=== PATIENT | male | born 1960 | race African-American/Black ===

== ENCOUNTER 2019-10-09 17:09 | Inpatient (IN) | payer OTHER ==
[~2019-10-09] VITALS: Ht 188 cm; Wt 59.9 kg
[2019-10-09 17:11] VITALS: BP 105/70
[2019-10-09] MEDS ORDERED: LORATIDINE 10 M10 M1 PO (17:41)
[2019-10-09 17:48] LABS: ABSOLUTE NEUTROPHILS 16.5 thou/uL (1.4-8.2); BASOPHILS 0.1 % (0.0-2.0); EOSINOPHILS 0.2 % (0.0-3.0); HEMATOCRIT 29.8 % (42.0-52.0); HEMOGLOBIN 10.1 gm/dL (14.0-18.0); LYMPHOCYTES 6.2 % (24.0-44.0); MCH 29.2 pg (26.0-34.0); MCHC 33.7 g/dL (28.0-37.0); MCV 86.7 fL (80.0-100.0); MONOCYTES 6.5 % (1.0-8.0); PLATELET COUNT 376 thou/uL (150-400); RBC 3.44 mil/uL (4.50-6.00); RDW 15.5 % (10.5-14.5)
[2019-10-09 17:51] LABS: ANION GAP 12 mmol/L (7-16); BUN 55 mg/dL (7-18); CALCIUM 7.4 mg/dL (8.5-10.1); CHLORIDE 103 mmol/L (98-107); CO2 23 mmol/L (21-32); CREATININE 4.6 mg/dL (0.7-1.3); GLUCOSE 118 mg/dL (74-106); POTASSIUM 3.6 mmol/L (3.5-5.1); SODIUM 138 mmol/L (136-145)
[2019-10-09 17:55] LABS: INR 1.5; PROTIME 15.5 Seconds (9.3-11.4)
[2019-10-09 18:01] LABS: ALBUMIN 1.4 g/dL (3.4-5.0); SGOT 72 U/L (15-37); SGPT 17 U/L (30-65); TOTAL BILIRUBIN 4.4 mg/dL (0.2-1.0); TROPONIN-I <0.06 ng/mL (<0.06)
--- NOTE | 2019-10-09 18:01 | NUR ---
FROM PHONE CALL WITH PT - [facility] - PT HAS NEVER BEEN HERE TO [facility], HE HAS NEVER BEEN DX WITH LIVER FAILURE BUT WAS DX WITH "TRAVELERS" HEPATITIS, PT HAS BEEN HAVING DARK BROWN VOMIT 1-2WKS, HIS STOOL HAS BEEN DARKER AND STICKY, PT'S LASIX WAS PRESCRIBED BY DR. LAMBERT AT [facility] RX FOR 5 DAYS FOR THE EDEMA IN HIS LEGS, PTS URINE HAS BEEN "VERY DARK" RECENTLY, BUT SHE IS UNSURE HOW LONG HIS STOMACH HAS BEEN SO DISTENDED #[phone]
[2019-10-09 18:29] LABS: URINE BILIRUBIN 3+ (Negative); URINE BLOOD NEGATIVE (Negative); URINE CLARITY CLEAR; URINE COLOR YELLOW; URINE GLUCOSE-RANDOM* TRACE (Negative); URINE KETONES TRACE (Negative); URINE LEUKOCYTES-REFLEX NEGATIVE (Negative); URINE NITRITE-REFLEX NEGATIVE (Negative); URINE PROTEIN (DIPSTICK) 1+ (Negative); URINE SPECIFIC GRAVITY >= 1.030 (1.005-1.035)
[2019-10-09 18:32] LABS: ICTOTEST (BILI CONFIRMATORY) Positive (Negative)
[2019-10-09 18:38] LABS: FINE GRANULAR CASTS 0-3 Few /LPF (None Seen); HYALINE CASTS >10 Many /LPF (None Seen)
[2019-10-09 18:39] LABS: BACTERIA-REFLEX None Seen /HPF (None Seen); URINE RBC 0-2 Rare /HPF (0-2); URINE WBC-REFLEX 0-5 Rare /HPF (0-5)
[2019-10-09 18:40] LABS: AMORPHOUS URATES Few /LPF (None Seen); SQUAMOUS 0-3 Few /LPF (0-3)
--- NOTE | 2019-10-09 19:41 | NUR ---
ERP NOTIFIED OF PT BP, ERP ORDERED HALF LITER OF FLUID AND NG TUBE
[2019-10-09 21:48] VITALS: BP 97/63
[2019-10-09 22:20] VITALS: BP 104/65
[2019-10-09 22:30] VITALS: BP 97/64
[2019-10-09 23:00] VITALS: BP 93/66
[2019-10-09 23:15] VITALS: BP 97/61
[2019-10-10] VITALS (31 sets, daily range): BP systolic 75–109; BP diastolic 44–73
[2019-10-10 05:41] LABS: HEMATOCRIT 30.3 % (42.0-52.0); HEMOGLOBIN 9.8 gm/dL (14.0-18.0); MCH 28.8 pg (26.0-34.0); MCHC 32.5 g/dL (28.0-37.0); MCV 88.7 fL (80.0-100.0); RBC 3.41 mil/uL (4.50-6.00); RDW 15.9 % (10.5-14.5)
[2019-10-10 05:58] LABS: CHOLESTEROL 104 mg/dL (<200); HDL CHOLESTEROL 6 mg/dL (>40); LDL CHOLESTEROL 67 mg/dL (<100); TC:HDL 17.3 Ratio (Not establshd); TRIGLYCERIDE 156 mg/dL (<150); VLDL 31 mg/dL (<40)
[2019-10-10 06:02] LABS: SERUM ASSESSMENT Clear
[2019-10-10 06:21] LABS: ALBUMIN 1.2 g/dL (3.4-5.0); CALCIUM 6.7 mg/dL (8.5-10.1); CREATININE 4.6 mg/dL (0.7-1.3); POTASSIUM 3.5 mmol/L (3.5-5.1); TOTAL PROTEIN 6.1 g/dL (6.4-8.2)
[2019-10-10 06:24] LABS: TOTAL BILIRUBIN 4.2 mg/dL (0.2-1.0)
--- NOTE | 2019-10-10 08:11 | NUR ---
RECEIVED PT FROM ER. PT ALERT. ST ON MONITOR. MAP >65. MAINT IVF INFUING. UO REMAINS LOW DESPITE INCREASE IN IVF RATE PER FIELD PROPERTY LOSS SPECIALIST. DR FLORES HERE THIS AM TO SEE PT. NO RESP DISTRESS. MAINTAIN 02SAT 97 ON 2LNC. NO COUGH OR FEVER. COVID PENDING. SEE [facility] FOR ASSESSMENT. CONT PLAN OF CARE.
--- NOTE | 2019-10-10 09:04 | EKG ---
[facility] [place] [address] ELECTROCARDIOGRAM REPORT Name: KAYLI GALLEGO Room #: 247-P ADM IN M.R.#: [id number] Admission: 10/09/19 Attend Phys: Saji Baptiste MD Discharge: Date of : 60 Report #: [id number] THIS REPORT FOR: cc: FAM - Family physician unknown FAM - Family physician unknown Brayan Seaman MD [facility] ~ THIS REPORT FOR: //name// [facility] ED Test Date: 2019-10-09 Test Time: 17:33:08 Pat Name: KAYLI GALLEGO Department: Room: 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1960 Requested By: Shandra Amaya Order Number: [id number] MD: Brayan Seaman Measurements Intervals [place] Rate: 106 P: 49 WI: 105 QRS: 34 QRSD: 110 T: 136 QT: 347 QTc: 461 Interpretive Statements Sinus tachycardia Nonspecific ST and T wave abnormality No previous ECG available for comparison Electronically Signed On 10-10-2019 9:02:42 CDT by Brayan Seaman [email or web address] <ELECTRONICALLY SIGNED> By: Brayan Seaman MD, [facility] 10/10/19901 1733 173 Brayan Seaman MD, [facility] /EPI
--- NOTE | 2019-10-10 12:08 | NUR ---
chart review. tried to reach pt bedside nurse to see if he is able to visit via phone call. discussed during lost consult ordered and will cont following as needed for dc needs.
--- NOTE | 2019-10-10 18:04 | NUR ---
PT REMAINS VERY WEAK. PT DENIES ANY TROUBLE BREATHING DURING THIS SHIFT. PT IS ON 4L NC. U.O IS ALMOST ZERO. PRIOR DAY SHIFT RN (TODAY) DRAINED 25MLS OF URINE FOR URINE LAB TEST. PT HAS NOT PRODUCED ENOUGHT TO BE MEASURED AFTER INITIAL AM [address] GRIDER AWARE OF VERY LOW U.O. PT REMAINS AFEBRILE. ABDOMEN REMAINS VERY DISTENDED. NO BM THIS SHIFT. GI ROUNDED AND PLANS TO DO EGD IN AM. NO N/V, SCANT AMOUNT OF DRAINAGE FROM NG TUBE.
--- NOTE | 2019-10-10 22:22 | NUR ---
PT SLEEPING IN BED WITH HAT AND COVERS OVER HIS EYES. PT EASILY AROUSED WITH VERBAL INTERACTION. IVF INTACT. NG TO LIS. ORO TO DD, BROWN URINE, RENAL DR AWARE OF SCANT URINE OUTPUT. ABD DISTENDED AND FIRM. O2 PER NC. LOW SBP CONTINUE. PT HAS SMALL LIQUID STOOL BROWN, INCONTINENT. PT ORIENTED TO SELF AND SITUATION, SPEECH AT TIMES MUMBLED.
--- NOTE | 2019-10-10 23:12 | NUR ---
PT ASKS FOR CELL PHONE TO BE PLACED IN HAND AND TURNED ON AND THEN PT RETURNS TO SLEEP.
--- NOTE | 2019-10-10 23:36 | NUR ---
PTS CALLED REPORTING THAT PT TOLD HIS DAUGHTER THAT HE WAS IN SEVERE PAIN. NURSE WENT TO TALK WITH PT, HE HAD TO BE AWAKENED AND HE STATED HIS ABD HURTS WHERE THEY STUCK HIM. PT REPOSITIONED. TALKED WITH OF HOW LOW HIS BP IS AND HOW PAIN MEDICATIONS DECREASE BLOOD PRESSURE BUT THAT WHEN A PT STARTS COMFORT CARES THAT IS NOT A FOCUS.
[2019-10-11] VITALS (14 sets, daily range): BP systolic 73–98; BP diastolic 40–61
--- NOTE | 2019-10-11 00:11 | NUR ---
PT AWAKENED AND ASKED RE PAIN, PT REPORTS DISCOMFORT AT SITE OF WHERE HE GOT STOCK. PT REPOSITIONED AND PROVIDED WARM BLANKET. PT STATED HE IS COMFORTABLE AND WANTS TO RETURN TO SLEEP. CHARGE NURSE UPDATED RE WIFES PHONE CALL AND PAIN CONCERNS AND PTS CURRENT STATUS.
--- NOTE | 2019-10-11 01:32 | NUR ---
PT AWAKENED AND REPORTED NAUSEA AND PAIN, PROVIDED PRNS. PT REPOSITIONED AND HE REPORTED HE WAS SLEEPY.
[2019-10-11 04:07] LABS: GLYCOHEMOGLOBIN (HGB A1C) 4.5 % (4.8-5.6)
[2019-10-11 05:14] LABS: HEMATOCRIT 28.3 % (42.0-52.0); HEMOGLOBIN 9.2 gm/dL (14.0-18.0); MCH 28.7 pg (26.0-34.0); MCHC 32.5 g/dL (28.0-37.0); MCV 88.4 fL (80.0-100.0); RBC 3.2 mil/uL (4.50-6.00); RDW 15.6 % (10.5-14.5); WBC 11.5 thou/uL (4.0-11.0)
[2019-10-11 05:22] LABS: ALBUMIN 3.1 g/dL (3.4-5.0); CALCIUM 7.1 mg/dL (8.5-10.1); CREATININE 4.9 mg/dL (0.7-1.3); MAGNESIUM 1.7 mg/dL (1.8-2.4); PHOSPHORUS 5.9 mg/dL (2.5-4.9); POTASSIUM 3.6 mmol/L (3.5-5.1); TOTAL PROTEIN 6.6 g/dL (6.4-8.2)
--- NOTE | 2019-10-11 05:28 | NUR ---
PER PHARMACY SHORTAGE ON ALBUMIN.
[2019-10-11 05:44] LABS: TOTAL BILIRUBIN 4.2 mg/dL (0.2-1.0)
--- NOTE | 2019-10-11 10:00 | NUR ---
cm spoke with bedside nurse who going to get pt a phone to use, so cm can visit with him. . a & o x 3 self, , name, year, and not location thought he was at [facility]. he soft spoken he gave cm phone number of [phone] but when cm called it was malachi voice message. cm did not leave any message just hung up the phone. cm spoke with pt via phone call. intro to cm and dcp. he reported " live with 4 steps into house, 7 steps inside house. not on any medication before this. independent. still drives. had rehab for his back. doesnt work and is not retried. no insurance or drNasir declines and resources ie safe net packet or support. " drug and ethol was offered before but did not do it and it wont be necessary this time"/margo. will cont following as needed for dc needs.
[2019-10-11 17:07] LABS: HAV IgM AB (ANTI-HAV IgM) Negative (Negative); HEPATITIS B SURFACE AG Negative (Negative); HEPATITIS C VIRUS AB 0.2 (0.0-0.9)
--- NOTE | 2019-10-11 18:29 | NUR ---
ASSUMED CARE @ 0700 10/11/19, PT ALERT AND ORIENTED X 2-3, PT ABLE TO FOLLOW SIMPLE COMMANDS BUT VERY WEAK. DR WELSH @ BEDSIDE @ AU[place]OX 0930, NO NEW ORDERS RECIEVED, RN MADE AWARE THAT WOULD BE COMING IN THE AFTERNOON TO FOR A MEETING ABOUT CODE STATUS. ARRIVES @ 1130, DR WELSH PAGED AND HE ARRIVES AT BEDSIDE AND EXPLAINS IN DETAIL PROGNOSIS AND PLAN OF CARE. NO DECISION WAS MADE TODAY. DR COLMENARES @ BEDSIDE 1145, NO NEW ORDERS RECIEVED. SBP IN 80'S ALL DAY, MAP GREATER THAN 60, DR WELSH AWARE. DR GARCIA TO BEDSIDE @ APPROX 1300, EGD IS PUT ON HOLD FOR TODAY. PT OLIGURIC, DR FLORES AWARE. PT COMPLAINS ABOUT PAIN DUE TO LOW BP, RN DIDNT FEEL COMFORTABLE GIVING FENTANYL , DR WELSH PAGED, NEW ORDERS RECIEVED.
[2019-10-12] VITALS (20 sets, daily range): BP systolic 79–100; BP diastolic 50–63
[2019-10-12 05:33] LABS: HEMATOCRIT 27.8 % (42.0-52.0); HEMOGLOBIN 8.8 gm/dL (14.0-18.0); MCH 28.6 pg (26.0-34.0); MCHC 31.6 g/dL (28.0-37.0); MCV 90.4 fL (80.0-100.0); RBC 3.07 mil/uL (4.50-6.00); RDW 16.1 % (10.5-14.5); WBC 11.9 thou/uL (4.0-11.0)
[2019-10-12 05:58] LABS: ALBUMIN 3.5 g/dL (3.4-5.0); CALCIUM 7.2 mg/dL (8.5-10.1); CREATININE 5.5 mg/dL (0.7-1.3); PHOSPHORUS 5.9 mg/dL (2.5-4.9); POTASSIUM 3.3 mmol/L (3.5-5.1)
--- NOTE | 2019-10-12 06:45 | NUR ---
PT FOLLOWS COMMANDS. PT ORIENTED x3. PT URINE OUTPUT 10 ML THROUGHOUT THE SHIFT - DR. HERNANDEZ AWARE. NO BLOODY EMESIS OR STOOL. PT EXPRESSED HIS WISHES TO BE DNR AND GO HOME ON HOSPICE. WISHES WERE CONVEYED INFRONT OF DR. HERNANDEZ. PT CALLED MULTIPLE TIMES THROUGHOUT THE NIGHT. PT UPDATED ON PT SITUATION AND EXPLAINED THE POOR PROGNOSIS OF LIVER FAILURE. CHART CHECK. PT NOT PROGRESSING TOWARDS GOAL.CONTINUE TO MONITOR.
[2019-10-12] MEDS ORDERED: MIDODRINE HCL 55 M1 PO (08:17)
[2019-10-12] MEDS ORDERED: KRISTALOSE20 GM PO (08:18)
[2019-10-12] MEDS ORDERED: DURAGESIC1 EAC4 TRANSDERM (08:18)
[2019-10-12] MEDS ORDERED: ZOFRAN 4 MG ORAL4 MG PO (08:22)
--- NOTE | 2019-10-12 09:18 | HC ---
[facility] [place] [address] CONSULTATION Name: KAYLI GALLEGO Room #: [facility] ADM IN M.R.#: [id number] Admission: 10/09/19 Attend Phys: Dee Dee Ramos Discharge: Date of : 60 Report #: [id number] THIS REPORT FOR: cc: SANJANA - Family physician unknown [facility] - Family physician unknown Tesfaye Villarreal MD ~ CC: SANJANA Ramos DATE OF SERVICE: 10/10/2019 REASON FOR PRESENTATION: Abdominal distension, weakness. REASON FOR CONSULTATION: Elevated creatinine. HISTORY OF PRESENT ILLNESS: Very limited to obtain from the patient given his overall mental status and condition. He is a 58-year-old with history of end-stage liver disease with ascites due to alcohol abuse. He presented with abdominal distension and generalized weakness. Apparently, the patient had some swelling and abdominal distension; was seen by his primary care physician last week, who initiated him on Lasix. This has resulted in improvement of his edema; however, the patient continued to have major issues with abdominal distension. informed the ER staff that the patient has been a heavy drinker for years. Last drink was 3-5 weeks ago. He carries a diagnosis of hypertension with noncompliance with his medications. When the patient presented to the Emergency Room yesterday, he was found to be in acute kidney injury with an elevated creatinine; however, I am not able to ascertain his previous creatinine values. Other details of the history are unavailable given the patient's current mentation. PAST MEDICAL HISTORY: 1. Alcohol abuse. 2. Hypertension. 3. Depression. 4. End-stage liver disease. ALLERGIES: IBUPROFEN. REVIEW OF SYSTEMS: Unobtainable, the patient is extremely lethargic and not able to provide me with the details. SOCIAL HISTORY: Past history of alcohol abuse, specifically vodka, quit a few weeks ago. He is a former smoker. FAMILY HISTORY: His mom has heart disease per the history obtained from the patient on arrival to the ER. [facility] [address] [place] [address] CONSULTATION Name: KAYLI GALLEGO Room #: [address] [place] [address] IN .R.#: [id number] Admission: 10/09/19 Attend Phys: Dee Dee Ramos Discharge: Date of : 60 Report #: [id number] MEDICATIONS: Loratadine. PHYSICAL EXAMINATION: GENERAL: He is extremely cachectic. He is lethargic. He is confused. VITAL SIGNS: Blood pressure is marginal at 80 or 90/64. HEAD AND NECK: Extreme wasting of his temporal muscles. CHEST: No crackles. CARDIOVASCULAR: No rub. ABDOMEN: Extreme tense ascites. I could not appreciate organomegaly. EXTREMITIES: Lower extremities with +3 edema. LABORATORY VALUES: White blood cell count 15,000, down from 19,000. Sodium is 142, potassium is 3.5, chloride is 108, carbon dioxide is 18, BUN is 54, creatinine is 4.6. Bilirubin is 4.2. AST is 68, ALT is 12. Chest, abdomen and pelvis CT was consistent with pleural effusion and ascites. ASSESSMENT AND PLAN: 1. Elevated creatinine, acute kidney injury with unknown baseline. 2. End-stage liver disease due to alcohol abuse. 3. I do not have the patient's creatinine value from the past. His presentation is highly suggestive of hepatorenal syndrome. He received some IV fluid resuscitation. I will start the appropriate workup for hepatorenal syndrome. I will initiate the patient on albumin, midodrine, octreotide. This seems to be a very bad prognosis situation and things will need to be addressed with the patient and his family accordingly. <ELECTRONICALLY SIGNED> By: Tesfaye Villarreal MD 10/12/19 0918 0857 0950 Tesfaye Villarreal MD /nt
--- NOTE | 2019-10-12 09:55 | NUR ---
PER CHART AND RN REPORT, Pt ON HOSPICE CARE. THEREFORE, O.T. IN ACUTE CARE SETTING NOT APPROPRIATE.
--- NOTE | 2019-10-12 10:00 | NUR ---
DR WELSH IN TO SEE PATIENT, PATIENT EXPRESS DESIRE TO MOVE TO HOSPICE CARE. CASE MANAGEMENT NOTIFIED. CALLED IN AND UPDATED TO THE PATIENT'S DESIRES AND UPDATED TO THE POC. EDUCATED ON PLANS OF HOSPICE, AND APPEARS TO BE ACCEPTING OF HER 'S DECISION AT THIS TIME. CONCERNED WITH HOW MUCH FAMILY CONTACT THERE CAN BE AT THIS TIME WITH LIMITED VISITING.
--- NOTE | 2019-10-12 16:10 | NUR ---
BASIHR reviewed chart and spoke with nursing and attending physician. Pt is a DNR and has decided to initiate hospice services. BASHIR spoke with pt via phone to discuss discharge plan. Pt states he is aware of hospice and would like to go home with hospice. SW also discussed a hospice facility. Pt is agreeable with hospice evaluation. Options discussed. No preference voiced. BASHIR faxed clinical info and order to [facility] and contacted liaison. roller engraver, Veronica, came to evaluate pt. Pt does not meet criteria for the hospice house at this time. BASHIR spoke with pt's , Jose Antonio, via phone to provide update and discuss discharge plan. BASHIR explained that if pt does not meet admission criteria for the hospice house, hospice can be arranged at home. Pt's states that she will try to see if other family members/friends would be able to provide care in the home. Preference would be for pt to go to the hospice house. BASHIR discussed with Veronica at [facility], who states she will come to [facility] tomorrow morning at 1000. BASHIR notified clubhouse attendant of Veronica coming tomorrow. BASHIR updated pt's nurse and attending physician. Pt to move out of ICU when a bed is available. BASHIR is following to assist as needed with discharge planning.
--- NOTE | 2019-10-12 17:16 | NUR ---
HOSPICE NURSE IN TO EVALUATED PATIENT FOR THE HOSPICE HOUSE AT 1330. PATIENT IS ALERT, AND COOPERATIVE, PAIN CONTROLLED WITH REPOSITIONING AND WARM BLANKETS. CALLED IN AT 1345 AND INFORMED THAT PATIENT WOULD BE REEVALUATED TOMORROW FOR HOSPICE HOUSE HE WAS EASILY CARED FOR WITH LIMITED MEDS. NG AND ORO OUT, TOLERATING PO FLUIDS WITHOUT NAUSEA OR EMESIS. ABLE TO SWALLOW PILLS WITHOUT COUGHING. TALKING ON PHONE WITH FAMILY. VSS
--- NOTE | 2019-10-12 19:44 | NUR ---
PATIENT NOT PROGRESSING, NAUSEA CONTINUES, VOMITED SMALL AMT OF CLEAR EMESIS. VSS. CALLED AT 1730 AND UPDATED TO THE POC.
[2019-10-13] VITALS (12 sets, daily range): BP systolic 75–102; BP diastolic 41–61
--- NOTE | 2019-10-13 05:00 | NUR ---
PT TRANSFERRED FROM ICU TO ROOM 459. REPORT FROM THIS RN WAS GIVEN TO NEREIDA MARTINI. PT WAS TRANSFERED VIA BED ACCOMPANIED BY NEREIDA MARTINI AND COOK FISHING VESSEL. PT'S [facility] WAS UPDATED ON PT TRANSFER TO AND THE PHONE NUMBER WAS GIVEN TO PT [facility]. PT AND PT BOTH WERE EXPLAINED THE REASON FOR PT TRANSFER TO [facility].PT WAS DROWSY BUT ALERT TO ANSWER QUESTIONS. NEREIDA MARTINI WAS COMMUNICATED THE CRITERIA FOR PT BP TO MAINTAIN MAP>60 UPON LEAVING THE UNIT. PT BELONGINGS AND CHART WERE SENT WITH PT AND NEREIDA MARTINI.
--- NOTE | 2019-10-13 06:12 | NUR ---
Pt transfered from ICU at 0520 via bed assist of 2 staff. A/OX3,able to make needs known. Denies pain on assessment. VS 83/55,80,14,95% on 4L/NC unable to obtain a temp at this time,extra warm blankets provided. Pts Shanon called and updated on pt status; phone# [phone] and would like updates with the discharge/hospice plans when available;will pass it on to dayshift RN. Fall precautions in place, will continue to monitor pt.
--- NOTE | 2019-10-13 12:19 | NUR ---
[facility] ASSESSED PT AT BEDSIDE THIS AM AND INDICATED THAT PT MET CRITERIA FOR INPATIENT HOSPICE HOUSE PLACEMENT. SHE NOTIFIED PT'S SPOUSE DEE DEE. CM CALLED AND SPOKE WITH DEE DEE NUMEROUS TIMES WELL DEE DEE WAS INITIALLY UNCERTAIN IF SHE WANTED PT TO GO TO THE HOSPICE HOUSE. SHE WAS CONSENTING. [facility]SPORT ARRANGED FOR 1345. NURSE HAS NUMBER TO CALL REPORT TO THE HOSPICE HOUSE. PT'S SPOUSE IS AWARE AND AGREEABLE. NO OTHER CM INTERVETNION INDICATED. CASE CLOSED.
--- NOTE | 2019-10-13 13:04 | NUR ---
PT IS AOX1, LOW BP, RECEIVED MIDODRINE GIVEN FOR BP SUPPORT. PT HAS BEEN ACCEPT TO HOSPICE HOUSE. PT REMAINS NPO, GAVE MOUTH SWAB TO KEEP HIS MOUTH MOIST. PT TURNED Q2 HRS. NURSE SPOKE TO AND FAMILY TO UPDATE ON PT CARE. PT HAS 3 BLANKETS TO HELP KEEP HIM WARM. WAITING FROM TRANSPORTATION AGENCY LEGAL COUNSEL TIME. NO DISTRESS NOTED AT THIS TIME. WILL CONTINUE TO MONITOR.
== END 2019-10-13 15:51 | disposition hospice, home (50) | DRG 871 ==
LOC: ER 17:09 → ICU 19:35 → EROBS 19:35 → ICU 21:50 → 4W 10-13 05:19
PROVIDERS: Hospitalist; Nurse Practitioner; Nurse Practitioner Family; ADMIT Hospitalist; ATTEND Hospitalist
DX: A41.9 Sepsis, unspecified organism (principal); K72.00 Acute and subacute hepatic failure without coma; J18.9 Pneumonia, unspecified organism; E43 Unspecified severe protein-calorie malnutrition; J96.01 Acute respiratory failure with hypoxia; K92.2 Gastrointestinal hemorrhage, unspecified; N17.9 Acute kidney failure, unspecified; E72.20 Disorder of urea cycle metabolism, unspecified; K92.0 Hematemesis; K56.7 Ileus, unspecified; F32.9 Major depressive disorder, single episode, unspecified; E83.51 Hypocalcemia; I95.9 Hypotension, unspecified; Z20.828 Contact with and (suspected) exposure to other viral communicable diseases; I12.9 Hypertensive chronic kidney disease with stage 1 through stage 4 chronic kidney disease, or unspecified chronic kidney disease; K21.9 Gastro-esophageal reflux disease without esophagitis; K70.11 Alcoholic hepatitis with ascites; K74.60 Unspecified cirrhosis of liver; E86.0 Dehydration; N18.9 Chronic kidney disease, unspecified; Z88.6 Allergy status to analgesic agent; Z82.49 Family history of ischemic heart disease and other diseases of the circulatory system; Z88.8 Allergy status to other drugs, medicaments and biological substances
CPT/HCPCS: 10078; 10203; 10204